=== PATIENT | male | born 1950 | race African-American/Black ===

== ENCOUNTER 2019-01-30 14:29 | Outpatient (CLI) | payer MEDICARE, OTHER ==
--- NOTE | 2019-01-31 15:45 | Consultation ---
DATE OF CONSULTATION: 01/30/2019 CONSULTING PHYSICIAN: Mohinder Ford M.D. REFERRING PHYSICIAN: Dr. Helms. CHIEF COMPLAINT: Referral for iron deficiency anemia. HISTORY OF PRESENT ILLNESS: This is a very pleasant 69-year-old male with past medical history of hemorrhoids and vitamin D deficiency, was referred for further evaluation of iron deficiency anemia. PAST MEDICAL HISTORY: 1. Hemorrhoids. 2. Vitamin D deficiency. PAST SURGICAL HISTORY: Shoulder surgery. MEDICATIONS: Multivitamin, iron Protonix, D3. FAMILY HISTORY: No family history of GI malignancy. SOCIAL HISTORY: Alcohol, the patient quit about three weeks ago. Tobacco, he smokes about one half a pack per day. ALLERGIES: No known allergies. REVIEW OF SYSTEMS: A 10-point review of systems was performed and is positive for rectal bleeding. PHYSICAL EXAMINATION: GENERAL: This is a well-developed male, in no acute distress. HEENT: Normocephalic and atraumatic. Sclerae anicteric. NECK: Supple. No evidence of obvious lymphadenopathy. CARDIOVASCULAR: Regular rate and rhythm. Plus S1 and S2. No obvious murmur. LUNGS: Clear to auscultation bilaterally. ABDOMEN: Positive bowel sounds. Soft and nontender. No rebound. No guarding. No peritoneal sign. EXTREMITIES: No cyanosis. No clubbing. No edema ASSESSMENT AND PLAN: This is a 69-year-old male with evidence of iron deficiency anemia, needs endoscopy and colonoscopy. The patient was given the prep for colonoscopy, instructions for colonoscopy. The procedure was explained to him. We will plan to do endoscopy and colonoscopy next week. I want to thank Dr. Helms for this kind referral. Mohinder Ford M.D. DR: LYSSA JOB#: [id number] CC: Roger Helms MD; Fax#: [phone]
[2019-02-01] MEDS ORDERED: VITAMIN D31000 UNI1 PO (09:35)
[2019-02-01] MEDS ORDERED: PROTONIX40 MG ORAL (09:35)
[2019-02-01] MEDS ORDERED: FERROUS SULFAT325 MG ORAL (09:35)
[2019-02-01] MEDS ORDERED: MULTIVITAMINS1 EAC2 ORAL (09:35)
== END 2019-01-30 16:01 | disposition home or self-care (01) ==
LOC: PAN 14:29
DX: D50.9 Iron deficiency anemia, unspecified (principal); F17.210 Nicotine dependence, cigarettes, uncomplicated; K62.5 Hemorrhage of anus and rectum
CPT/HCPCS: G0463

== ENCOUNTER 2019-02-20 09:11 | Day surgery (SDC) | payer MEDICARE, OTHER ==
[~2019-02-20] VITALS: Ht 182.9 cm; Wt 65.8 kg
[2019-02-20] VITALS (8 sets, daily range): BP systolic 134–154; BP diastolic 77–88
--- NOTE | 2019-02-20 07:47 | Anethesia Preoperative Eval ---
Anesthesia Pre-op PMH/ROS General Date of Evaluation: Feb 20, 2019 Time of Evaluation: 07:46 Anesthesiologist: timothy ASA Score: ASA 3 Mallampati Score Class I : Soft palate, uvula, fauces, pillars visible Class II: Soft palate, uvula, fauces visible Class III: Soft palate, base of uvula visible Class IV: Only hard plate visible Mallampati Classification: Class II Surgeon: toñito Diagnosis: gerd, anemia Surgical Procedure: egd/colonoscopy Anesthesia History: none Social History: current smoker, alcohol use Family History: no anesthesia problems Allergies: Coded Allergies: No Known Allergies (Unverified , 01/31/19) Medications: see eMAR Patient NPO?: Yes Past Medical History Cardiovascular: Reports: HTN Gastrointestinal/Genitourinary: Reports: GERD, other - hemorrhoids, prostate dz Hematology/Immune: Reports: anemia Musculoskeletal/Integumentary: Reports: DJD PSxH Narrative: shoulder sx Anesthesia Pre-op Phys. Exam Physician Exam Last Vital Signs Date Time Temp Pulse Resp B/P (MAP) Pulse Ox O2 Delivery O2 Flow Rate FiO2 02/20/19 09:59 Room Air 02/20/19 09:36 97.4 96 18 154/81 95 Constitutional: NAD, other - exophthalmos Neurologic: CN 2-12 intact Cardiovascular: RRR Respiratory: CTA Gastrointestinal: S/NT/ND Airway Exam Mallampati Score: Class II MO: limited Neck: flexible TMD: 2fb ROM: limited Anesthesia Pre-op A/P Studies Pre-op Studies: EKG - nsr Risk Assessment & Plan Assessment: asa3 Plan: mac Status Change Before Surgery: No Pre-Antibiotics Drug: Gia Moreira MD Feb 20, 2019 07:47
[~2019-02-20 09:11] MED LIST: Atropine Inj 1mg/10ml Syr IV PRN; DiphenhydrAMINE 50mg/ml Inj IVP PRN; FERROUS SULFAT325 MG ORAL; LR 1000ml 1,000 ML IVLG SCH; MULTIVITAMINS1 EAC2 ORAL; Midazolam 2mg/2ml Inj IVP PRN; PROTONIX40 MG ORAL; VITAMIN D31000 UNI1 PO; fentaNYL 100 mcg/2 mL IV PRN
[2019-02-20] MEDS ORDERED: CYPROHEPTADINE H4 MG PO (09:55)
[2019-02-20] MEDS ORDERED: HYDROCHLOROTHIA25 MG ORAL (09:55)
[2019-02-20] MEDS ORDERED: NORVASC10 MG ORAL (09:55)
[2019-02-20] MEDS ORDERED: FLOMAX0.4 MG ORAL (09:55)
[2019-02-20] MEDS ORDERED: Lidocaine 1% MPF 10mg/ml 5ml ONE (10:00)
[2019-02-20] MEDS ORDERED: Propofol 200mg/20ml IV ONE (10:00)
[2019-02-20] MEDS ORDERED: LR 1000ml ONE (10:00)
--- NOTE | 2019-02-20 10:29 | Short Stay Surgery H&P ---
History of Present Illness History of Present Illness Chief Complaint see recent office note HPI Jose Antonio Norwood is a 69 year old male who was admitted on for Gerd, Anemia Patient History Allergies: Coded Allergies: No Known Allergies (Unverified , 01/31/19) Medication History Scheduled Amlodipine Besylate (Norvasc), 10 MG ORAL DAILY, (Reported) Cyproheptadine Hcl (Cyproheptadine Hcl), 4 MG PO DAILY, (Reported) Ferrous Sulfate* (Ferrous Sulfate*), 325 MG ORAL THREE TIMES A DAY, (Reported) Hydrochlorothiazide* (Hydrochlorothiazide*), 25 MG ORAL DAILY, (Reported) Multivitamins* (Multivitamins*), 1 TAB ORAL DAILY, (Reported) Pantoprazole* (Protonix*), 40 MG ORAL DAILY, (Reported) Tamsulosin HCl (Flomax), 0.4 MG ORAL DAILY, (Reported) Miscellaneous Medications Cholecalciferol (Vitamin D3) (Vitamin D3), Unknown Dose PO, (Reported) Physical Exam Vital Signs Last Vital Signs Date Time Temp Pulse Resp B/P (MAP) Pulse Ox O2 Delivery O2 Flow Rate FiO2 02/20/19 09:59 Room Air 02/20/19 09:36 97.4 96 18 154/81 95 Plan Attestation Are the patient's medical conditions optimized for surgery? Mohinder Ford MD Feb 20, 2019 10:29
--- NOTE | 2019-02-20 10:29 | Pre-Procedure Note/Attestation ---
Pre-Procedure Note/Attestation Complete Prior to Procedure Planned Procedure: not applicable Procedure Narrative: EGD and colonoscopy Indications for Procedure Pre-Operative Diagnosis: screening colon, GERD Attestation I attest that I discussed the nature of the procedure; its benefits; risks and complications; and alternatives (and the risks and benefits of such alternatives ), prior to the procedure, with the patient (or the patient's legal agency service representative). I attest that, if there was a reasonable possibility of needing a blood transfusion, the patient (or the patient's legal agency service representative) was given the [facility] standardized written summary, pursuant to the Jaime Dean Blood Safety Act ([place] Health and Safety Code # 1645, as amended). I attest that I re-evaluated the patient just prior to the surgery and that there has been no change in the patient's H&P, except as documented below: Mohinder Ford MD Feb 20, 2019 10:29
--- NOTE | 2019-02-20 11:10 | Endoscopy Procedure Note ---
Endoscopy Procedure Note General Indication for Procedure: screening colon, Anemia Procedures Performed: EGD, colonoscopy Operative Findings/Diagnosis: duodenal AVM, 2 colon polyps Specimen: yes Pt Tolerated Procedure Well: Yes Estimated Blood Loss: none Anesthesia Anesthesiologist: michelle nash Anesthesia: MAC Inserted Devices Implant(s) used?: No Quality Quality of Bowel Preparation: Good Did scope reach the cecum?: Yes Was there any complications?: No GI Core Measures 50 yrs or older w/o bx or poly: No 10yrs. F/U recommended: Yes If not recommended, why?: Above average risk 18 years or older w/prev. colo: No Mohinder Ford MD Feb 20, 2019 11:10
--- NOTE | 2019-02-20 11:28 | Immediate Post-Op Evaluation ---
Immediate Post-Op Evalulation Immediate Post-Op Evalulation Procedure: egd/colonoscopy w/bx Date of Evaluation: Feb 20, 2019 Time of Evaluation: 11:27 IV Fluids: 500ml lr Blood Products: none Estimated Blood Loss: negligible Blood Pressure Systolic: 140 Blood Pressure Diastolic: 85 Pulse Rate: 83 Respiratory Rate: 18 O2 Sat by Pulse Oximetry: 100 Temperature (Fahrenheit): 97.7 Pain Score (1-10): 0 Nausea: No Vomiting: No Complications none Patient Status: awake, reacts, patent Hydration Status: adequate Drug: Gia Moreira MD Feb 20, 2019 11:28
--- NOTE | 2019-02-20 11:29 | 48 Hour Post Anesthesia Eval ---
Post Anesthesia Evaluation Procedure: egd/colonoscopy w/bx Date of Evaluation: Feb 20, 2019 Time of Evaluation: 11:29 Blood Pressure Systolic: 134 0: 80 Pulse Rate: 80 Respiratory Rate: 18 Temperature (Fahrenheit): 97.7 O2 Sat by Pulse Oximetry: 100 Airway: patent Nausea: No Vomiting: No Pain Intensity: 0 Hydration Status: adequate Cardiopulmonary Status: stable Mental Status/LOC: patient returned to baseline Post-Anesthesia Complications: none Follow-up care needed: N/A Gia Farfan MD Feb 20, 2019 11:29
--- NOTE | 2019-02-21 05:30 | Procedure Note ---
DATE OF PROCEDURE: 02/20/2019 SURGEON: Mohinder Ford M.D. PROCEDURE: 1. Upper endoscopy with biopsy and hemostasis. 2. Colonoscopy with biopsy. ANESTHESIA: Per Dr. Maki. INSTRUMENT: Olympus adult flexible upper endoscope and colonoscope. INDICATION: 1. Anemia. 2. Screening colonoscopy. REASON FOR PROCEDURE: The procedure, risks, benefits, and possible consequences, including hemorrhage, aspiration, perforation and infection, and alternative treatments, were explained to the patient/legal guardian by Dr. Mohinder Ford and the patient/legal guardian understood and accepted these risks. DESCRIPTION OF PROCEDURE: After informed consent was obtained and the patient was adequately sedated, Olympus upper endoscope was advanced from mouth into the second portion of duodenum and retroflexion was performed in the stomach . 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 Also, the patient has evidence of diffuse gastritis. Random biopsy from antrum and body was obtained to rule out H. pylori infection. The patient had evidence of a small hiatal hernia without any esophagitis. At this time, we decided to do APC of two large AVMs in the duodenal bulb. This measured each about 1 cm and was used in APC technique to cauterize it. Then upper endoscope was retrieved. The patient was turned over for colonoscopy. First, rectal exam was performed, which was normal. Then the scope was advanced from the rectum into the cecum documented by appendiceal orifice, ileocecal valve, and right upper quadrant palpation. Quality of prep was good except for left colon was very limited. The patient had two diminutive polyps, one in the rectum, one in the descending colon removed with cold biopsy forceps technique. The patient had evidence of diverticulosis only on the right side. Retroflexion of rectum showed evidence of internal hemorrhoids. SUMMARY OF FINDINGS: 1. Gastritis, status post biopsy. 2. Small hiatal hernia. 3. Duodenal AVMs status post APC. 4. Two colonic polyps removed, see above for details. 5. Internal hemorrhoids. 6. Right-sided diverticulosis. RECOMMENDATIONS: 1. Followup path. 2. We will recommend capsule endoscopy to evaluate further AVMs in the rest of the small intestine, most probably explain anemia. 3. We recommend repeat colonoscopy in 5 years. Mohinder Gaby Ford DR: Arabella JOB#: [id number] CC:
== END 2019-02-20 12:45 | disposition home or self-care (01) ==
LOC: GAS 09:11
DX: Z12.11 Encounter for screening for malignant neoplasm of colon (principal); D64.9 Anemia, unspecified; K44.9 Diaphragmatic hernia without obstruction or gangrene; K57.90 Diverticulosis of intestine, part unspecified, without perforation or abscess without bleeding; K64.8 Other hemorrhoids; K63.5 Polyp of colon; Q23.9 Congenital malformation of aortic and mitral valves, unspecified; K29.50 Unspecified chronic gastritis without bleeding
CPT/HCPCS: 43239; 43255; 45380; 93005; J2704; J7120; 94003; 94150

== ENCOUNTER 2019-03-28 08:13 | Outpatient (CLI) | payer MEDICARE, OTHER ==
[~2019-03-28 08:13] MED LIST changes: -Atropine Inj 1mg/10ml Syr IV PRN; +CYPROHEPTADINE H4 MG PO; -DiphenhydrAMINE 50mg/ml Inj IVP PRN; +FLOMAX0.4 MG ORAL; +HYDROCHLOROTHIA25 MG ORAL; -LR 1000ml 1,000 ML IVLG SCH; -Midazolam 2mg/2ml Inj IVP PRN; +NORVASC10 MG ORAL; -fentaNYL 100 mcg/2 mL IV PRN
--- NOTE | 2019-03-28 09:21 | General Progress Note ---
Assessment/Plan Assessment/Plan: Assessment/Plan Assessment/Plan: s/p EGD and colonoscopy SUMMARY OF FINDINGS: 1. Gastritis, status post biopsy. 2. Small hiatal hernia. 3. Duodenal AVMs status post APC. 4. Two colonic polyps removed, see above for details. 5. Internal hemorrhoids. 6. Right-sided diverticulosis. RECOMMENDATIONS: plan capsule endoscopy to evaluate further AVMs in the rest of the small intestine, most probably explain anemia. We recommend repeat colonoscopy in 5 years. Subjective ROS Limited/Unobtainable: Yes Allergies: Coded Allergies: No Known Allergies (Unverified , 01/31/19) Objective General Appearance: alert EENT: normal ENT inspection Neck: supple Cardiovascular: normal rate Respiratory/Chest: lungs clear Abdomen: normal bowel sounds, non tender, soft Extremities: non-tender Mohinder Ford MD Mar 28, 2019 09:21
[2019-03-28 09:23] VITALS: BP 144/80
== END 2019-03-28 12:52 | disposition home or self-care (01) ==
LOC: PAN 08:13
DX: K29.70 Gastritis, unspecified, without bleeding (principal); K44.9 Diaphragmatic hernia without obstruction or gangrene; K63.5 Polyp of colon; K64.8 Other hemorrhoids; K57.90 Diverticulosis of intestine, part unspecified, without perforation or abscess without bleeding; Q27.33 Arteriovenous malformation of digestive system vessel
CPT/HCPCS: 91110; G0463; 99212

== ENCOUNTER 2019-05-15 13:58 | Outpatient (CLI) | payer MEDICARE, OTHER ==
[2019-05-15 14:51] VITALS: BP 139/70
== END 2019-05-15 15:47 | disposition home or self-care (01) ==
LOC: PAN 13:58
DX: D64.9 Anemia, unspecified (principal)
CPT/HCPCS: 99212

== ENCOUNTER → 2019-05-15 | Outpatient (CLI) | payer MEDICARE, OTHER ==
[2019-05-15 10:47] LABS: ANION GAP 12 mmol/L (5-15); BLOOD UREA NITROGEN 12 mg/dL (7-18); CALCIUM 9.6 MG/DL (8.5-10.1); CARBON DIOXIDE 26 MMOL/L (21-32); CHLORIDE 105 MMOL/L (98-107); POTASSIUM 4.1 MMOL/L (3.5-5.1); SODIUM 143 MMOL/L (136-145)
[2019-05-15 10:48] LABS: BASOPHILS % (AUTO) 1.9 % (0.0-2.0); EOSINOPHILS % (AUTO) 6.8 % (0.0-3.0); HEMATOCRIT 49.5 % (42.0-52.0); HEMOGLOBIN 16.3 G/DL (14.2-18.0); LYMPHOCYTES % (AUTO) 13.8 % (20.0-45.0); MEAN CORPUSCULAR VOLUME 93 FL (80-99); MONOCYTES % (AUTO) 7.7 % (1.0-10.0); NEUTROPHILS % (AUTO) 69.8 % (45.0-75.0); PLATELET COUNT 290 K/UL (150-450); RED BLOOD COUNT 5.33 M/UL (4.70-6.10); WHITE BLOOD COUNT 4.3 K/UL (4.8-10.8)
[2019-05-15 10:51] LABS: ALANINE AMINOTRANSFERASE 36 U/L (12-78); ALBUMIN 4.1 G/DL (3.4-5.0); ALBUMIN/GLOBULIN RATIO 1.1 (1.0-2.7); ALKALINE PHOSPHATASE 64 U/L (46-116); AMYLASE 102 U/L (25-115); ASPARTATE AMINO TRANSFERASE 21 U/L (15-37); BILIRUBIN,TOTAL 0.3 MG/DL (0.2-1.0)
--- NOTE | 2019-05-15 14:22 | General Progress Note ---
Assessment/Plan Assessment/Plan: Progress Note date and time: 03/28/19 0921 Assessment/Plan Assessment/Plan: Anemia wt loss elevated tumor markers h/o ETOH Assessment/Plan Assessment/Plan: s/p EGD and colonoscopy SUMMARY OF FINDINGS: 1. Gastritis, status post biopsy. 2. Small hiatal hernia. 3. Duodenal AVMs status post APC. 4. Two colonic polyps removed, see above for details. 5. Internal hemorrhoids. 6. Right-sided diverticulosis. RECOMMENDATIONS: capsule endoscopy>>> few AVM pending CT for elevated CA 19-9 and AFP monitor H&H on roro po iron may need double ballon endoscopy Subjective ROS Limited/Unobtainable: Yes Allergies: Coded Allergies: No Known Allergies (Unverified , 01/31/19) Objective Laboratory Tests 05/15/19 10:20: White Blood Count 4.3L, Red Blood Count 5.33, Hemoglobin 16.3, Hematocrit 49.5, Mean Corpuscular Volume 93, Mean Corpuscular Hemoglobin 30.5, Mean Corpuscular Hemoglobin Concent 32.9, Red Cell Distribution Width 17.0H, Platelet Count 290, Mean Platelet Volume 5.4L, Neutrophils (%) (Auto) 69.8, Lymphocytes (%) (Auto) 13.8L, Monocytes (%) (Auto) 7.7, Eosinophils (%) (Auto) 6.8H, Basophils (%) ( Auto) 1.9, Sodium Level 143, Potassium Level 4.1, Chloride Level 105, Carbon Dioxide Level 26, Anion Gap 12, Blood Urea Nitrogen 12, Creatinine 1.0, Estimat Glomerular Filtration Rate > 60, Glucose Level 100, Calcium Level 9.6, Total Bilirubin 0.3, Aspartate Amino Transf (AST/SGOT) 21, Alanine Aminotransferase ( ALT/SGPT) 36, Alkaline Phosphatase 64, Total Protein 7.9, Albumin 4.1, Globulin 3.8, Albumin/Globulin Ratio 1.1, Amylase Level 102, Lipase 236 General Appearance: alert EENT: normal ENT inspection Neck: supple Cardiovascular: normal rate Respiratory/Chest: decreased breath sounds Abdomen: normal bowel sounds, non tender, soft Extremities: non-tender Mohinder Ford MD May 15, 2019 14:22
--- NOTE | 2019-05-15 15:22 | Diagnostic Imaging Report ---
INDICATION: Abdominal pain TECHNIQUE: Continuous helical transaxial imaging of the abdomen and pelvis was obtained from the lung bases to the pubic symphysis during intravenous contrast administration. Coronal 2-D reformats were also obtained. Study obtained in a Siemens sensation [address] Automatic Exposure Control was utilized. Total Dose length Product (DLP): [address] Dose Index Volume (CTDIvol): 5.3 mGy COMPARISON: None FINDINGS: Lungs: The visualized lung bases are clear. Liver: There is mild nodularity liver surface. The liver is diffusely hypodense consistent with fatty infiltration Gallbladder/biliary system: No gallstones are identified. There is no evidence of intrahepatic or extrahepatic biliary ductal dilatation. Spleen: Unremarkable Pancreas: Unremarkable Kidneys/Bladder: There is a tiny bilateral renal cysts. There is no hydronephrosis the bladder is unremarkable.. Adrenal glands: Unremarkable Aorta/IVC: Calcification of aorta noted consistent with atherosclerotic disease. Bowel: Diverticula demonstrated in the colon. There is no evidence of small bowel obstruction. The appendix is normal Peritoneum: There is no free fluid.. Prostate gland measures 6.3 x 4.8 x 5.2 cm. Bones: There is narrowing of intervertebral discs and accompanying endplate osteophyte formation. Hypertrophied facet joints also demonstrated. IMPRESSION: Fatty liver. Mild surface nodularity which is a sign of chronic disease. Please correlate clinically. Bilateral renal cysts Diverticulosis of the colon. Atherosclerotic vascular disease. Prostate hypertrophy. Degenerative changes of the spine The CT scanner at [facility] is accredited by the [employer] and the scans are performed using dose optimization techniques as appropriate to a performed exam including Automatic Exposure control.
--- NOTE | 2019-05-22 18:30 | Procedure Note ---
DATE OF PROCEDURE: 05/22/2019 SURGEON: Mohinder Ford M.D. PROCEDURE: Capsule endoscopy. INDICATION: GI bleeding, anemia. REASON FOR PROCEDURE: The procedure, risks, benefits, and possible consequences, including hemorrhage, aspiration, perforation and infection, and alternative treatments, were explained to the patient/legal guardian by Dr. Mohinder Ford and the patient/legal guardian understood and accepted these risks. PROCEDURE: After informed consent was obtained and the patient swallowed the camera. Camera spent about 20 minutes in the stomach before entered the small intestine. Spent 4 hours and 24 minutes in the small intestine before entered the colon. The patient had multiple AVMs, small one not active bleeding in the small intestine, mostly in the distal part, closer to the distal jejunum or ileum part, most of them were seen at 2 hours and 22 minutes into this procedure and 3 hours and 18 minutes, so basically spread, but mostly in the distal small bowel, not actively bleeding. Capsule entered the colon at the end of the study. SUMMARY OF FINDINGS: 1. A 4 hours and 24 minutes of small intestine examination. 2. Multiple AVMs, mostly in the sigmoid colon, not actively bleeding. Possibly source of bleeding is the oozing slowly over time. RECOMMENDATIONS: The patient to be followed by Oncology, Hematology, and also by us. Periodically, we are going to check the iron panel and CBC and if the patient continues to have iron-deficiency anemia or stool OB positive and low hemoglobin, might benefit from a double balloon study and cauterization of this lesion. I want to thank, Dr. Helms for this kind referral. Mohinder Ford M.D. DR: OMER JOB#: [id number] CC: Yamil Helms MD.
== END | disposition home or self-care (01) ==
LOC: CAT 10:09 → EDSTATUS 10:30
DX: R10.9 Unspecified abdominal pain (principal); K76.0 Fatty (change of) liver, not elsewhere classified; N28.1 Cyst of kidney, acquired; K57.90 Diverticulosis of intestine, part unspecified, without perforation or abscess without bleeding; N40.0 Benign prostatic hyperplasia without lower urinary tract symptoms; I70.90 Unspecified atherosclerosis
CPT/HCPCS: 36415; 74177; 80053; 82150; 83690; 85025; Q9967